=== PATIENT | female | born 1995 | race Caucasian/White ===

== ENCOUNTER 2019-09-27 14:21 | Emergency (ER) | payer OTHER, SELFPAY ==
[2019-09-27 14:28] VITALS: BP 139/73; PULSE 108; RESP 18; TEMP 36.6; O2SAT 98
--- NOTE | 2019-09-27 14:50 | ED.URI ---
HPI - URI/Sore Throat General Chief Complaint: Upper Respiratory Infection Stated Complaint: sore throat/cough/fever Source: patient Mode of arrival: ambulatory Limitations: no limitations History of Present Illness HPI Narrative: Patient is a 24-year-old female who presents complaining of sore throat and fever x1 to 2 days. Patient reports nausea and vomiting x1 today. She denies diarrhea. Denies cough or bilateral ear pain. She reports taking [id number] medication with moderate relief. 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 MD elicited complaint: fever and sore throat Related Data Home Medications Medication Instructions Recorded Confirmed acetaminophen [Tylenol] 325 mg PO ONCE PRN 09/27/19 09/27/19 ibuprofen 200 mg PO Q6H PRN 09/27/19 09/27/19 Allergies Allergy/AdvReac Type Severity Reaction Status Date / Time No Known Drug Allergies Allergy Unknown none Verified 09/27/19 14:34 Cat Dander Allergy Unknown nasal Uncoded 10/03/18 14:38 congestion Cultivated Oat Pollen Allergy Unknown nasal Uncoded 10/03/18 14:38 congestion Review of Systems Review of Systems: Narrative: CONSTITUTIONAL: Reports fever x1 day EYES: Denies visual changes, redness, or discharge. ENT: Denies rhinorrhea, congestion, or otalgia. Reports sore throat x1 to 2 days CARDIOVASCULAR: Denies chest pain, palpitations, or edema. RESPIRATORY: Denies cough or dyspnea. GASTROINTESTINAL: Denies abdominal pain, nausea, vomiting, or diarrhea. GENITOURINARY: Denies dysuria or hematuria. SKIN: Denies rash or itching. MUSCULOSKELETAL: Denies back pain, joint pain, or myalgia. NEUROLOGIC: Denies headache, numbness, dizziness, or weakness. PSYCHIATRIC: Denies anxiety or depression. [facility] Past Medical History Medical History (Updated 09/27/19 @ 14:54 by KEEGAN Juarez) No pertinent past medical history Surgical History Surgical History (Updated 09/27/19 @ 14:52 by KEEGAN Juarez) No pertinent past surgical history Social History Social History (Updated 09/27/19 @ 14:52 by KEEGAN Juarez) Smoking status: Never smoker Alcohol intake: current Alcohol use details: Socially Substance use: never Gender identity (if verbalized by the patient): Female Course Vital Signs Vital signs: Vital Signs Temperature 36.6 C 09/27/19 14:28 Pulse Rate 108 H 09/27/19 14:28 Respiratory Rate 18 09/27/19 14:28 Blood Pressure 139/73 09/27/19 14:28 Pulse Oximetry 98 09/27/19 14:28 Temperature 36.6 C 09/27/19 14:28 Pulse Rate 108 H 09/27/19 14:28 Respiratory Rate 18 09/27/19 14:28 Blood Pressure 139/73 09/27/19 14:28 Pulse Oximetry 98 09/27/19 14:28 Reviewed. Patient has been instructed to follow-up with her PCP regarding her blood pressure. MDM - URI/Sore Throat MDM Narrative Medical decision making narrative: Patient's rapid strep is positive. Patient to be treated for strep throat at this time. Discussed plan of care with patient. Patient is stable for discharge home with outpatient follow-up as needed. Differential Diagnosis Differential diagnosis: Likely other (Strep throat) Lab Data Labs: Strep Screen Positive Group A Strep *(Reference Range: Negative)* Reviewed Critical Care Time Critical Care Time Critical Care Time: No Discharge Plan Discharge Clinical Impression: Strep throat Patient Disposition: Home, Self-Care Condition: Stable Instructions: Antibiotic Form, Strep Throat (ED) Additional Instructions: Take medication as prescribed. You may return to work when you are fever free, or after you have had 24 to 48 hours of antibiotics. Prescriptions: New penicillin V potassium 500 mg tablet 500 mg PO Q12H 10 Days Qty: 20 RF: 0 ibuprofen 800 mg tablet 800 mg PO TID PRN (Reason: pain) Qty: 20 RF: 0 No Action acetaminophen [Tylenol] 325 mg Tablet 325 mg PO
== END 2019-09-27 15:02 | disposition home or self-care (01) ==
PROVIDERS: Emergency Provider Nurse Practitioner
DX: J02.0 Streptococcal pharyngitis (principal)
CPT/HCPCS: 87880; 99213; G0463

== ENCOUNTER 2022-08-19 19:12 | Emergency (ER) | payer OTHER, SELFPAY ==
[2022-08-19 19:38] VITALS: BP 136/77; PULSE 107; RESP 18; TEMP 36.6; O2SAT 97
--- NOTE | 2022-08-19 19:43 | ED.URI ---
HPI - URI/Sore Throat General Chief Complaint: Upper Respiratory Infection Stated Complaint: sorethroat Time Seen by Provider: 08/19/22 19:43 Source: patient Mode of arrival: ambulatory Limitations: no limitations History of Present Illness HPI Narrative: [age] female presents with complaint of sore throat, fatigue for 4 days. Reports that she had fever the 1st 2 days but has resolved. States that throat pain and throat swelling getting progressively worse. All systems reviewed and negative except as noted above. Related Data Home Medications Medication Instructions Recorded Confirmed norethindrone 1 mg-e. estradiol 20 1 tablet PO DAILY 08/19/22 08/19/22 mcg (24)-iron 75 mg (4) chew tablet (Finzala) Allergies Allergy/AdvReac Type Severity Reaction Status Date / Time No Known Allergies Allergy Verified 08/19/22 19:33 Review of Systems Review of Systems: CONSTITUTIONAL: Denies fever, chills, or sweats. Reports fatigue. EYES: Denies visual changes, redness, or discharge. ENT: Denies rhinorrhea, congestion . Reports sore throat. CARDIOVASCULAR: Denies chest pain, palpitations, or edema. RESPIRATORY: Denies cough or dyspnea. GASTROINTESTINAL: Denies abdominal pain, nausea, vomiting, or diarrhea. GENITOURINARY: Denies dysuria or hematuria. SKIN: Denies rash or itching. MUSCULOSKELETAL: Denies back pain, joint pain, or myalgia. NEUROLOGIC: Denies headache, numbness, or weakness. PSYCHIATRIC: Denies anxiety or depression. All other systems reviewed are negative, except as documented in HPI. [facility] Past Medical History Medical History (Updated 08/19/22 @ 19:50 by Tamra Marquez NP) No pertinent past medical history Surgical History Surgical History (Updated 09/27/19 @ 14:52 by Laura Abdi, KEEGAN) No pertinent past surgical history Social History Social History (Updated 09/27/19 @ 14:52 by Laura Abdi, KEEGAN) Smoking status: Never smoker Alcohol intake: current Alcohol use details: Socially Substance use: never Gender identity (if verbalized by the patient): Female Comments At time of signature, agree with nursing past medical, surgical, social and family history. There is no relevant family history pertinent to the presenting complaint. Exam Narrative: GENERAL: This is a well-nourished, well-developed patient, in no apparent distress. HEAD: normocephalic, atraumatic. EYES: PERRL. Sclera clear/white. Vision is grossly intact. EARS: External ears normal, auditory canals clear and without drainage, TMs normal without perforation. Hearing grossly intact. NOSE: External nose normal with no obvious nasal discharge, nares without redness, no rhinorrhea. THROAT: Mucous membranes moist, erythema and swelling, exudates tonsils, tonsils 2+ bilaterally. NECK: Neck supple, tender Anterior cervical lymphadenopathy. No masses or thyromegaly. CARDIOVASCULAR: Regular rate and rhythm without murmurs, gallops, or rubs. RESPIRATORY: Clear to auscultation. Breath sounds equal bilaterally. No wheezes, rales, or rhonchi. SKIN: warm, Dry, intact with no suspicious lesions or rash, good texture and turgor. NEURO: awake, alert, and oriented to person, place and time. There were no obvious focal neurologic abnormalities. EXTREMITIES: No joint tenderness, effusion, or edema noted. Course Course Level of Care: Express Care Visit Vital Signs Vital signs: Vital Signs Temperature 36.6 C 08/19/22 19:38 Pulse Rate 107 H 08/19/22 19:38 Respiratory Rate 18 08/19/22 19:38 Blood Pressure 136/77 08/19/22 19:38 Pulse Oximetry 97 08/19/22 19:38 Oxygen Delivery Room Air 08/19/22 19:38 Temperature 36.6 C 08/19/22 19:38 Pulse Rate 107 H 08/19/22 19:38 Respiratory Rate 18 08/19/22 19:38 Blood Pressure 136/77 08/19/22 19:38 Pulse Oximetry 97 08/19/22 19:38 Oxygen Delivery Room Air 08/19/22 19:38 reviewed MDM - URI/Sore Throat MDM Narrativ
== END 2022-08-19 19:51 | disposition home or self-care (01) ==
PROVIDERS: Emergency Provider Nurse Practitioner Family
DX: J02.9 Acute pharyngitis, unspecified (principal); Z86.16 Personal history of COVID-19
CPT/HCPCS: 99213; G0463

== ENCOUNTER 2023-05-22 11:04 | Emergency (ER) | payer OTHER, SELFPAY ==
--- NOTE | 2023-05-22 11:09 | ED.URI ---
HPI - URI/Sore Throat General Chief Complaint: Upper Respiratory Infection Stated Complaint: Cough,Sore Throat Source: patient and RN notes reviewed History of Present Illness HPI Narrative: 28-year-old female presents to urgent care with complaints of a sore throat since yesterday. Patient states she developed a fever last night. States she has been battling allergies for the last month and reports a slight cough and some congestion. Denies any chest pain, shortness of breath, vomiting, abdominal pain, or diarrhea. Denies any ear pain. Patient did take some ibuprofen prior to arrival. Related Data Home Medications Medication Instructions Recorded Confirmed norethindrone 1 mg-e. estradiol 20 1 tablet PO DAILY 08/19/22 05/22/23 mcg (24)-iron 75 mg (4) chew tablet (Finzala) Allergies Allergy/AdvReac Type Severity Reaction Status Date / Time No Known Allergies Allergy Verified 05/22/23 11:17 Review of Systems Review of Systems: Pertinent positives and pertinent negatives per HPI. [facility] Past Medical History Medical History (Updated 05/22/23 @ 11:26 by Elysia Portillo, INK TECHNICIAN) No pertinent past medical history Surgical History Surgical History (Updated 09/27/19 @ 14:52 by Laura Abdi, QUILL FIXER) No pertinent past surgical history Social History Social History (Updated 09/27/19 @ 14:52 by Laura Abdi, QUILL FIXER) Smoking status: Never smoker Alcohol intake: current Alcohol use details: Socially Substance use: never Gender identity (if verbalized by the patient): Female Comments At the time of my signature, I reviewed and agree with the nursing past medical, surgical, social, and family history. There is no relevant family history pertinent to the patient complaint. Exam Narrative: GENERAL: This is a well-nourished, well-developed patient, in no apparent distress. HEAD: normocephalic, atraumatic. EYES: Sclera clear/white. Vision is grossly intact. EARS: External ears normal, auditory canals clear and without drainage, TMs normal without perforation. Hearing grossly intact. NOSE: External nose normal with no obvious nasal discharge, nares without redness, no rhinorrhea. THROAT: Mucous membranes moist, posterior pharynx erythremic, tonsils are 3+ bilaterally with exudate NECK: Neck supple, non-tender without lymphadenopathy, masses or thyromegaly. CARDIOVASCULAR: Regular rate and rhythm without murmurs, gallops, or rubs. RESPIRATORY: Clear to auscultation. Breath sounds equal bilaterally. No wheezes, rales, or rhonchi. SKIN: warm, intact with no suspicious lesions or rash, good texture and turgor. NEURO: awake, alert, and oriented to person, place and time. There were no obvious focal neurologic abnormalities. EXTREMITIES: No clubbing, cyanosis, or edema. No joint tenderness, effusion, or edema noted. BACK: Nontender without deformity or crepitus. No flank tenderness. Course Course Level of Care: Express Care Visit Vital Signs Vital signs: Vital Signs Temperature 102 F H 05/22/23 11:12 Pulse Rate 117 H 05/22/23 11:12 Respiratory Rate 18 05/22/23 11:12 Blood Pressure 146/85 H 05/22/23 11:12 Pulse Oximetry 100 05/22/23 11:12 Oxygen Delivery Room Air 05/22/23 11:12 Temperature 102 F H 05/22/23 11:12 Pulse Rate 117 H 05/22/23 11:12 Respiratory Rate 18 05/22/23 11:12 Blood Pressure 146/85 H 05/22/23 11:12 Pulse Oximetry 100 05/22/23 11:12 Oxygen Delivery Room Air 05/22/23 11:12 reviewed MDM - URI/Sore Throat MDM Narrative Medical decision making narrative: After 24 hours on antibiotics throw tooth brush away and start using a new one. Increase your Vitamin C. Do not share drinks. Take Motrin alternating with Tylenol for pain and/or fever alternating every 4 hours. Increase fluids, avoid caffeine. Take a probiotic daily or eat a low sugar yogurt while taking the antibiotic. Follow up with Primary provider if not getting b
[2023-05-22 11:12] VITALS: BP 146/85; PULSE 117; RESP 18; TEMP 38.8; O2SAT 100
== END 2023-05-22 11:50 | disposition home or self-care (01) ==
PROVIDERS: Emergency Provider Nurse Practitioner Family; PCP Family Medicine
DX: J02.0 Streptococcal pharyngitis (principal)
CPT/HCPCS: 87880; 96372; 99213; G0463; J1100

== ENCOUNTER 2023-06-10 17:41 | Emergency (ER) | payer OTHER, SELFPAY ==
--- NOTE | 2023-06-10 17:46 | ED.URI ---
HPI - URI/Sore Throat General Chief Complaint: Ear Stated Complaint: Rt Ear Irritation Time Seen by Provider: 06/10/23 17:46 Source: patient, RN notes reviewed and old records reviewed Mode of arrival: ambulatory Limitations: no limitations History of Present Illness HPI Narrative: 28-year-old female presents to the [facility] with right ear pain. Pain, pressure, decreased hearing started on Friday, 4 days ago. Had been using Q-tips to try to remove wax. Patient just finished amoxicillin, diagnosed with strep 2 and half weeks ago on 22 May. Related Data Home Medications Medication Instructions Recorded Confirmed norethindrone 1 mg-e. estradiol 20 1 tablet PO DAILY 08/19/22 06/10/23 mcg (24)-iron 75 mg (4) chew tablet (Finzala) Allergies Allergy/AdvReac Type Severity Reaction Status Date / Time No Known Allergies Allergy Verified 06/10/23 17:48 Review of Systems Review of Systems: All systems reviewed & are unremarkable except as noted in HPI and below Constitutional: Constitutional: Reports no additional constitutional complaints Eyes: Eyes: Reports no additional eye complaints ENT: Reports as per HPI Cardiovascular: Cardiovascular: Reports no additional cardiovascular complaints, Denies chest pain and Denies dyspnea Respiratory: Respiratory: Reports no additional respiratory complaints, Denies chest congestion, Denies cough and Denies dyspnea Gastrointestinal: Gastrointestinal: Reports no additional gastrointestinal complaints, Denies abdominal pain, Denies nausea and Denies vomiting Musculoskeletal: Musculoskeletal: Reports no additional musculoskeletal complaints Integumentary/Breasts: Skin/Breast: Reports system reviewed and no additional complaints, except as docu Neurologic: Reports system reviewed and no additional complaints, except as documented Psychiatric: Psychiatric: Reports no additional psychiatric complaints Allergic/Immunologic: Allergic/Immunologic: Reports no additional allergic/immunologic complaints PENDING SALE TO [facility] Past Medical History Medical History No pertinent past medical history Surgical History Surgical History No pertinent past surgical history Social History Social History Smoking status: Never smoker Alcohol intake: current Alcohol use details: Socially Substance use: never Gender identity (if verbalized by the patient): Female Comments At the time of my signature, I reviewed and agree with the nursing past medical, surgical, social, and family history. There is no relevant family history pertinent to the patient complaint. Exam Const: General: cooperative, healthy appearing, comfortable, no acute distress, well developed, alert and well nourished Nutritional Appearance: well nourished Orientation/consciousness: patient oriented x3 Limitations: no limitations HENMT: Head: normal to inspection Ears: hearing grossly normal bilaterally, external ears normal, EAC's normal, mastoids normal and TM abnormal bulging on the right and wth effusion serous on the right; not erythematous Face/Nose/Sinus: Normal external nose present, Normal nares present, Normal nasal mucous membranes and turbinates present, normal facial exam and face symmetric Face and sinus: normal facial exam and face symmetric Mouth: Yes Normal oral and palatal mucosa present, Yes lip normal and Yes moist mucous membranes Throat: posterior oropharynx normal and uvula midline Eyes: General: appearance normal, both eyes and all related structures Alignment and Position: alignment normal Periorbital: periorbital findings normal Pupils: Equal, round and reactive pupils present EOM: EOMs intact bilaterally Neck: Neck: normal visual inspection, full ROM, no lymphadenopathy and no meningeal signs Chest: Chest palpation & inspection
[2023-06-10 17:49] VITALS: BP 139/71; PULSE 88; RESP 16; TEMP 36.8; O2SAT 100
== END 2023-06-10 18:00 | disposition home or self-care (01) ==
PROVIDERS: Emergency Provider Nurse Practitioner; PCP Family Medicine
DX: H65.01 Acute serous otitis media, right ear (principal)
CPT/HCPCS: 99213; G0463

== ENCOUNTER 2024-09-29 17:24 | Emergency (ER) | payer OTHER, SELFPAY ==
--- OUTSIDE RECORDS SUMMARY | 2024-09-29 17:26 | XMS_ITS | Clinical Summary ---
Author Organization [facility] Address [facility] [place] [address] Care Team Providers Care [employer] St[employer]izer Name Role Phone Leonela Garcia MD Primary Care Provider [phone] Allergies No known active allergies Medications FINZALA 1-20 MG-MCG(24) Chew Tab CHEW AND SWALLOW ONE TABLET BY MOUTH DAILY 09/28/2022 Active cetirizine (ZYRTEC) 10 MG chewable tablet Chew 1 tablet (10 mg total) by mouth daily. Active Active Problems No known active problems Immunizations Name Administration Dates Next Due MODERNA COVID-19 (12+) MRNA, LNP-S, PF, 100 MCG/ 0.5 ML DOSE 10/27/2020,09/29/2020 Family History Medical History Relation Comments Heart Disease Paternal Grandmother Relation Status Comments Paternal Grandmother Social History Tobacco Use Types Packs/Day Years Used Date Smoking Tobacco: Never Smokeless Tobacco: Never Alcohol Use Standard Drinks/Week Comments Yes 0 (1 standard drink = 0.6 oz pur e alcohol) rarely Comments No Sex and Gender Information Value Date Recorded Sex Assigned at Not on file 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 Gender Identity Not on file Sexual Orientation Not on file Last Filed Vital Signs Vital Sign Reading Time Taken Comments Blood Pressure 124/86 11/29/2022 3:14 PM CDT Pulse 79 11/29/2022 3:14 PM CDT Temperature 37.3 C (99.2 F) 11/29/2022 3:14 PM CDT Respiratory Rate 20 11/29/2022 3:14 PM CDT Oxygen Saturation 98% 11/29/2022 3:14 PM CDT Inhaled Oxygen Concentration - - Weight 95.3 kg (210 lb) 11/29/2022 3:14 PM CDT Height 165.1 cm (5' 5 ) 11/29/2022 3:14 PM CDT Body Mass Index 34.95 11/29/2022 3:14 PM CDT Plan of Treatment Health Maintenance Due Date Last Done Comments Cervical Cancer Screening Pa p Smear (Age 21 to 29) Every 3 Years 1996 Annual Physical 1999 DTaP, Tdap and Td Vaccines ( 1 - Tdap) 2015 Hepatitis B Vaccines (1 of 3 - 19+ 3-dose series) 2015 COVID-19 Vaccine (2023-2 5 season) 2024 10/27/2020, 09/29/2020 Influenza Adult (#1) 2024 PHQ-2 (Physician [place]) 08/25/2024 Cervical Cancer Screening 11/29/2027 Po stponed from 1996 (Going to Outside Clinic) Hepatitis C Completed 12/13/2022 HPV Vaccines Aged Out No longer eligi ble based on patient's age to complete this topic Meningococcal B Vaccine Aged Out No l onger eligible based on patient's age to complete this topic Meningococcal Vaccine Aged Out No silva lissy eligible based on patient's age to complete this topic Pneumococcal Vaccine: Pediatrics (0 to 5 Years) and At-Risk Patients (6 to 64 Years) Aged Out No longer eligible b ased on patient's age to complete this topic RSV Immunizations Under 20 Months Aged Out No longer eligible b ased on patient's age to complete this topic Procedures Procedure Name Priority Date/Time Associated Diagnosis Comments HEPATITIS C ANTIBODY Routine 12/13/2022 7:42 AM CDT Encounter for hepatitis C screening test for low risk patient from Last 3 Months or Most Recently Relevant to Health Maintenance Results * HEPATITIS C AB ([facility] ONLY) (12/13/2022 7:42 AM CDT) HEPATITIS C AB NON-REACTI VE NON-REACTI VE 12/13/2022 8:20 PM CDT [facility] 12/13/2022 7:42 AM CDT Leonela Garcia MD LABORATORY Final Result [facility] [address] [place] [address], [place] [phone] from Last 3 Months or Most Recently Relevant to Health Maintenance Insurance [facility] Care Teams [employer] St[employer] Relationship Specialty [place] [id number] [facility] [address] [place] [id number] PCP - General FAMILY PRACTICE 10/14/22
[2024-09-29 17:36] VITALS: BP 133/79; PULSE 91; RESP 18; TEMP 36.8; O2SAT 97
--- NOTE | 2024-09-29 17:48 | ED_ITS ---
HPI - URI/Sore Throat General Chief Complaint: Upper Respiratory Infection Stated Complaint: flu-like symptoms Source: patient and RN notes reviewed Mode of arrival: ambulatory Limitations: no limitations History of Present Illness HPI Narrative: 21-year-old female presented for complaint of sore throat, headache, body aches, sinus pressure/congestion, cough, fever/chills. Onset yesterday. Reports temp up to 99.3. Took Sudafed. 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 Denies sob, wheezing, n/v/d. MD elicited complaint: cough Related Data Home Medications ?Medication ?Instructions ?Recorded ?Confirmed ?Last Taken ?Type norethindrone 1 mg-e. estradiol 20 1 tablet PO DAILY 08/19/22 06/10/23 Unknown History mcg (24)-iron 75 mg (4) chew tablet (Finzala) albuterol sulfate 90 mcg/actuation inhalation 09/29/24 Unknown History aerosol inhaler fluticasone furoate 200 inhalation 09/29/24 Unknown History mcg-vilanterol 25 mcg/dose inhalation powder (Breo Ellipta) Allergies Allergy/AdvReac Type Severity Reaction Status Date / Time No Known Allergies Allergy Verified 09/29/24 17:41 Review of Systems Review of Systems: per [facility] Past Medical History Medical History No pertinent past medical history Surgical History Surgical History No pertinent past surgical history Social History Social History Smoking status: Never smoker Alcohol intake: current Alcohol use details: Socially Substance use: never Gender identity (if verbalized by the patient): Female Exam Narrative: GENERAL: Mildly Ill-appearing, nontoxic no acute distress. EYES: PERRLA, conjunctivae clear ENT: Mucous membranes moist. TM pearly nova with dull light reflex and clear effusion bilaterally; no tragal tenderness. Oropharynx not erythematous without lesions or exudate, no drooling, no hoarseness, no trismus, uvula midline. No tripod positioning, muffled voice, soft palate or pharyngeal wall bulging NECK: Supple. No lymphadenopathy CHEST: Clear to auscultation, breath sounds equal. No wheezing, rhonchi, rales, or stridor. No respiratory distress, speaks in full sentences. HEART: Regular rate and rhythm. No murmur heard. SKIN: Warm, dry, no rash. NEURO: Alert and oriented x3. PSYCH: Normal mood and affect Course Course Emergency Course: Patient is aware of diagnosis, understands and agrees to treatment plan. Anticipatory guidance given. Patient agrees to follow-up as directed and is aware of reasons to seek care at the emergency department. Portions of this record may have been created with voice recognition software Level of Care: Express Care Visit Vital Signs Vital signs: Vital Signs Temperature 98.2 F 09/29/24 17:36 Pulse Rate 91 09/29/24 17:36 Respiratory Rate 18 09/29/24 17:36 Blood Pressure 133/79 09/29/24 17:36 Pulse Oximetry 97 09/29/24 17:36 Oxygen Delivery Room Air 09/29/24 17:36 Temperature 98.2 F 09/29/24 17:36 Pulse Rate 91 09/29/24 17:36 Respiratory Rate 18 09/29/24 17:36 Blood Pressure 133/79 09/29/24 17:36 Pulse Oximetry 97 09/29/24 17:36 Oxygen Delivery Room Air 09/29/24 17:36 reviewed MDM - URI/Sore Throat MDM Narrative Medical decision making narrative: Negative flu and COVID. Patient declined strep testing. Discussed physical exam findings. Advised supportive measures and signs/symptoms to go to the ER. Pt is appropriate for outpt treatment and f/u. Differential Diagnosis Differential diagnosis: Likely upper respiratory infection, sinusitis and viral infection Discharge Plan Discharge Clinical Impression: Viral infection Patient Disposition: Home, Self-Care Condition: Stable Instructions: Antibiotic Form, Viral Syndrome (ED) Additional Instructions: Flu and COVID negative today. It may be too early to detect the virus, therefore we recommend retesting at home in 1-2 days Continue to follow general precautions: frequent handwashing, wear a mask, isolate/social distance, and avoid crowds if you have a fever. You must be fever free for 24 hours without the use of fever reducing medication (Tylenol/ibuprofen) before returning to work/school/crowds. Recommend Flonase spray and Zyrtec (or Claritin/[place]) over the counter Cough syrup may cause drowsiness; avoid driving or take it at night time. Tylenol 1000mg every 8 hours as needed for pain Symptomatic treatment includes: rest, fluids, and increase humidity of the air at home. Follow up with your primary care provider in 1 week. Go to the ER for worsening symptoms or concerns. Patient Language: Divehi Prescriptions: No Action norethindrone-e.estradiol-iron [Finzala] 1 mg-20 mcg(24) /75 mg (4) tablet,chewable 1 tablet PO DAILY albuterol sulfate 90 mcg/actuation HFA aerosol inhaler INHALATION fluticasone furoate-vilanterol [Breo Ellipta] 200-25 mcg/dose blister with device INHALATION Follow-up/Referrals: Jsoe,MD Leonela [Primary Care Provider] - Time of Disposition: 17:55
[2024-09-29 17:53] LABS: EDINFLUASCREEN Negative (Negative); EDINFLUBSCREEN Negative (Negative)
[2024-09-29 17:53] LABS: EDCOVIDSCREEN Negative (Negative)
== END 2024-09-29 17:58 | disposition home or self-care (01) ==
PROVIDERS: Emergency Provider Nurse Practitioner Family; PCP Family Medicine
DX: B34.9 Viral infection, unspecified (principal); Z20.822 Contact with and (suspected) exposure to COVID-19
CPT/HCPCS: 87426; 87804; 99212; 99213; G0463

== ENCOUNTER 2024-11-25 08:17 | Outpatient (CLI) | payer OTHER, SELFPAY ==
--- NOTE | ~2024-11-25 | US_ITS ---
US breast BI complete INDICATION: Bilateral palpable breast abnormalities. TECHNIQUE: Dedicated bilateral breast ultrasound complete ultrasound including all 4 quadrants in the subareolar locations COMPARISON: No prior studies for comparison. FINDINGS: The breasts breast is/are composed of normal heterogeneous echotexture without focal solid or cystic mass. IMPRESSION: 1: Normal bilateral breast ultrasound. BI-RADS CATEGORY 1 - NEGATIVE Reviewed, dictated and finalized at location A.
== END 2024-11-25 08:18 | disposition home or self-care (01) ==
PROVIDERS: PCP Nurse Practitioner; Visit Provider Nurse Practitioner
DX: N63.20 Unspecified lump in the left breast, unspecified quadrant (principal)
CPT/HCPCS: 76641

== ENCOUNTER 2025-01-20 08:48 | Outpatient (CLI) | payer OTHER, SELFPAY ==
--- NOTE | ~2025-01-20 | MMUS_ITS ---
EXAMINATION: MM diagnostic markos BI w laney, US breast LT limited HISTORY: Palpable left breast mass TECHNIQUE: Additional 3-D tomosynthesis images of the breasts were performed and synthetic 2-D images were generated. CAD analysis was submitted and interpreted. High resolution Limited left breast ultr asound was performed. COMPARISON: Ultrasound dated 11/25/2024 BREAST PARENCHYMAL COMPOSITION: Dense: The breasts are heterogeneously dense, which may obscure small masses FINDINGS: MAMMOGRAPHIC FINDINGS: There are no suspicious masses, calcifications or architectural distortion in either breast to sugges t malignancy. ULTRASOUND: Limited left breast ultrasound: There are no suspicious masses or cyst in the area of palpable abnorm ality. IMPRESSION: 1. No evidence for malignancy in either breast. 2. Routine yearly screening mammogram beginning at age 40 and regular clinical breast examination are recommended. BI-RADS Category 1: Negative Reviewed, dictated and finalized at location A. IMPRESSION: 1. No evidence for malignancy in either breast. 2. Routine yearly screening mammogram beginning at age 40 and regular clinical breast examination are recommended. BI-RADS Category 1: Negative
== END 2025-01-20 08:49 | disposition home or self-care (01) ==
PROVIDERS: PCP Nurse Practitioner; Visit Provider Surgery
DX: N63.21 Unspecified lump in the left breast, upper outer quadrant (principal)
CPT/HCPCS: 76642; 77062; 77066; G0279